=== PATIENT | female | born 1980 ===

== ENCOUNTER 2017-05-02 14:11 | Emergency (ER) | payer BC ==
--- NOTE | 2017-05-02 14:35 | ED ---
Lower Extremity - HPI Summary HPI Summary: 36 YEAR OLD FEMALE PRESENTS WITH LEFT ANKLE PAIN AFTER TWISTING IT WHILE FALLING. - History of Current Complaint Stated Complaint: LEFT ANKLE INJURY Time Seen by Provider: 05/02/17 14:34 Hx Obtained From: Patient Mechanism Of Injury: Fall From A Standing Position Onset of Pain: Immediate Onset/Duration: Days Severity Currently: Moderate Pain Scale Used: 0-10 Numeric - 6 Timing: Constant Character Of Pain: Sharp, Throbbing Associated Signs And Symptoms: Positive: Swelling Aggravating Factor(s): Standing - Allergies/Home Medications Allergies/Adverse Reactions: Allergies Allergy/AdvReac Type Severity Reaction Status Date / Time No Known Allergies Allergy Verified 05/02/17 14:42 Home Medications: Home Medications Control Med 1 tab QAM 05/02/17 [History Confirmed 05/02/17] PMH/Surg Hx/FS Hx/Imm Hx Previously Healthy: Yes Review of Systems Constitutional: Negative Eyes: Negative ENT: Negative Cardiovascular: Negative Respiratory: Negative Gastrointestinal: Negative Genitourinary: Negative Positive: Other - LEFT ANKLE SPRAIN/SWELLING All Other Systems Reviewed And Are Negative: Yes Physical Exam Triage Information Reviewed: Yes Vital Signs Reviewed: Yes Appearance: Positive: Well-Appearing Skin: Positive: Warm Head/Face: Positive: Normal Head/Face Inspection Eyes: Positive: Normal ENT: Positive: Normal ENT inspection Neck: Positive: Supple Respiratory/Lung Sounds: Positive: Clear to Auscultation Cardiovascular: Positive: Normal Abdomen Description: Positive: Nontender Bowel Sounds: Positive: Present Musculoskeletal: Positive: Other - LEFT ANKLE PAIN Neurological: Positive: Normal Psychiatric: Positive: Normal Lower Extremity Course/Dx - Diagnoses Provider Diagnoses: Pain in left ankle and joints of left foot Discharge - Discharge Plan Condition: Stable Disposition: HOME Prescriptions: Meloxicam(NF) [Mobic(NF)] 7.5 mg PO BID #30 tab Patient Education Materials: Ankle Sprain (ED) Referrals: Shaun Manning MD [Medical Doctor] - Non Staff,Doctor [Medical Doctor] -
[2017-05-02 14:49] VITALS: BP 110/65
--- NOTE | 2017-05-02 15:13 | RAD ---
Indication: Medial LEFT ankle pain with medial lower leg proximal radiation. Injury on Monday. Comparison: No relevant prior exams available [place] the [facility] [place]. Technique: AP, mortise, and lateral views LEFT ankle. Report: Normal articular alignment. Negative for fracture. Unremarkable soft tissue contours. IMPRESSION: Negative exam.
== END 2017-05-02 15:36 | disposition home or self-care (01) ==
LOC: UCCORT 14:11
DX: M25.572 Pain in left ankle and joints of left foot (principal)
CPT/HCPCS: 99213; G0463

== ENCOUNTER 2017-06-14 07:30 | Emergency (ER) | payer BC ==
[2017-06-14 07:41] VITALS: BP 122/69
[2017-06-14] MEDS ORDERED: Acetaminophen TAB* 325 MG PO ONE (07:47)
--- NOTE | 2017-06-14 07:54 | UC ---
Throat Pain/Nasal Benedicto HPI - HPI Summary HPI Summary: Fever, myalgias since yesterday. Severe sore throat this morning. No cough. No GI symptoms. - History of Current Complaint Chief Complaint: UCRespiratory Stated Complaint: ACHY FEVER SORE THROAT Time Seen by Provider: 06/14/17 07:46 Hx Obtained From: Patient Hx Last Menstrual Period: 06/07/17 Onset/Duration: Gradual Onset, Lasting Hours Severity: Moderate Cough: None Associated Signs & Symptoms: Positive: Dysphagia, Fever. Negative: Hoarseness, Sinus Discomfort, Nasal Discharge, Vomiting, Rash - Allergies/Home Medications Allergies/Adverse Reactions: Allergies Allergy/AdvReac Type Severity Reaction Status Date / Time No Known Allergies Allergy Verified 06/14/17 07:34 Home Medications: Home Medications Acetaminophen-Caffeine [Excedrin Tension Headache 500-65 mg] 1 tab PO ONCE PRN 06/14/17 [History Confirmed 06/14/17] Ibuprofen [Advil] 600 mg PO Q6H PRN 06/14/17 [History Confirmed 06/14/17] PMH/Surg Hx/FS Hx/Imm Hx Previously Healthy: Yes - Surgical History Surgical History: Yes Surgery Procedure, Year, and Place: GALLBLADDER - Family History Known Family History: Positive: Other - no related ENT family history. - Social History Occupation: Employed Full-time Lives: With Family Alcohol Use: None Substance Use Type: None Smoking Status (MU): Never Smoked Tobacco - Immunization History Most Recent Influenza Vaccination: none 2016 Review of Systems Constitutional: Fever ENT: Sore Throat All Other Systems Reviewed And Are Negative: Yes Physical Exam Triage Information Reviewed: Yes Appearance: Well-Nourished Vital Signs: Initial Vital Signs Temp 99.2 F 06/14/17 07:36 Pulse 102 06/14/17 07:36 Resp 18 06/14/17 07:36 BP 122/69 06/14/17 07:36 Pulse Ox 100 06/14/17 07:36 Vital Signs Reviewed: Yes Eyes: Positive: Conjunctiva Clear ENT: Positive: Pharyngeal erythema, Tonsillar exudate, Uvula midline Neck exam: Normal Neck: Positive: Supple, Nontender, Tenderness @, Enlarged Nodes @ Respiratory Exam: Normal Respiratory: Positive: Chest non-tender, Lungs clear, Normal breath sounds, No respiratory distress, No accessory muscle use. Negative: Respiratory distress Cardiovascular: Positive: RRR, No Murmur, Pulses Normal, Brisk Capillary Refill Abdomen Description: Positive: Soft. Negative: Distended, Guarding Musculoskeletal: Positive: Strength Intact, ROM Intact, No Edema Neurological: Positive: Alert, Muscle Tone Normal. Negative: Fatigued Skin: Negative: rashes Throat Pain/Nasal Course/Dx - Differential Dx/Diagnosis Differential Diagnosis/HQI/PQRI: Epiglottitis, Influenza, Mononucleosis, Otitis Media, Peritonsillar Abscess, Pharyngitis, Sinusitis, Tonsillitis, URI Provider Diagnoses: strep throat. Discharge - Discharge Plan Condition: Good Disposition: HOME Prescriptions: Amoxicillin PO (*) [Amoxicillin 500 MG CAP*] 500 mg PO TID #30 cap Patient Education Materials: Strep Throat (ED) Referrals: Soo Noble [Primary Care Provider] - If Needed
== END 2017-06-14 08:15 | disposition home or self-care (01) ==
LOC: UCCORT 07:30
DX: J02.0 Streptococcal pharyngitis (principal); Z90.49 Acquired absence of other specified parts of digestive tract
CPT/HCPCS: 87502; 87651; 99212; A9270-GY; G0463

== ENCOUNTER → 2017-06-26 18:31 | Emergency (ER) | payer BC ==
[2017-06-26 19:53] VITALS: BP 110/56
--- NOTE | 2017-06-26 20:05 | UC ---
Throat Pain/Nasal Benedicto HPI - HPI Summary HPI Summary: 37 year old female presents with sore throat. - History of Current Complaint Chief Complaint: UCGeneralIllness Stated Complaint: SORE THROAT Time Seen by Provider: 06/26/17 20:04 Hx Obtained From: Patient Hx Last Menstrual Period: 06/07/17 Onset/Duration: Gradual Onset Severity: Moderate Pain Scale Used: 0-10 Numeric - 4 - Allergies/Home Medications Allergies/Adverse Reactions: Allergies Allergy/AdvReac Type Severity Reaction Status Date / Time No Known Allergies Allergy Verified 06/26/17 19:53 Home Medications: Home Medications guaiFENesin ER TAB [Mucinex*] 600 mg PO BID PRN 06/26/17 [History Confirmed ] PMH/Surg Hx/FS Hx/Imm Hx - Surgical History Surgical History: Yes Surgery Procedure, Year, and Place: GALLBLADDER - Family History Known Family History: Positive: Other - no related ENT family history. - Social History Alcohol Use: None Substance Use Type: None Smoking Status (MU): Never Smoked Tobacco - Immunization History Most Recent Influenza Vaccination: none 2016 Review of Systems Constitutional: Negative Skin: Negative Eyes: Negative ENT: Sore Throat Respiratory: Negative Cardiovascular: Negative Gastrointestinal: Negative Genitourinary: Negative Motor: Negative Neurovascular: Negative Musculoskeletal: Negative Neurological: Negative Psychological: Negative All Other Systems Reviewed And Are Negative: Yes Physical Exam Triage Information Reviewed: Yes Vital Signs: Initial Vital Signs Temp 37.2 C 06/26/17 19:47 Pulse 92 06/26/17 19:47 Resp 20 06/26/17 19:47 BP 110/56 06/26/17 19:47 Pulse Ox 100 06/26/17 19:47 Vital Signs Reviewed: Yes Eye Exam: Normal ENT Exam: Normal ENT: Positive: Pharyngeal erythema, Tonsillar swelling Dental Exam: Normal Neck exam: Normal Neck: Positive: 1 Respiratory Exam: Normal Cardiovascular Exam: Normal Abdominal Exam: Normal Musculoskeletal Exam: Normal Neurological Exam: Normal Psychological Exam: Normal Skin Exam: Normal Throat Pain/Nasal Course/Dx - Differential Dx/Diagnosis Provider Diagnoses: pharyngitis Discharge - Discharge Plan Condition: Stable Disposition: HOME Prescriptions: Azithromyxin JOESPH (NF) [Z-Joesph (Zithromax) 250 mg tabs #6] 2 tab PO .TODAY, THEN 1 DAILY #6 tab LoraTADine TAB(NF) [Claritin 10 MG TAB(NF)] 10 mg PO DAILY #30 tab Magic M W2 Tayo/Maal/Nyst/Lido* 5 ml SWISH SPIT QID PRN #120 ml PRN Reason: Sore Throat Patient Education Materials: Pharyngitis (ED), Allergic Rhinitis (ED) Referrals: Soo Noble [Primary Care Provider] -
== END | disposition home or self-care (01) ==
LOC: UCCORT 18:31
DX: J02.9 Acute pharyngitis, unspecified (principal)
CPT/HCPCS: 87651; 99212; G0463

== ENCOUNTER 2017-06-30 18:19 | Emergency (ER) | payer BC ==
[2017-06-30 18:26] VITALS: BP 123/64
--- NOTE | 2017-06-30 19:30 | UC ---
Throat Pain/Nasal Benedicto HPI - HPI Summary HPI Summary: SEVERAL WEEKS OF SINUS CONGESTION, SORE THROAT, COUGH, LARYNGITIS. SEEN ON ` AND PRESCRIBED AZITHROMYCIN, HAS NOT TAKEN ANY OF THE ANTIBIOTICS. SYMPTOMS WORSENING. - History of Current Complaint Chief Complaint: UCRespiratory Stated Complaint: UPPER RESPIRATORY Time Seen by Provider: 06/30/17 18:21 Hx Obtained From: Patient, Family/Sand Conditioner Hx Last Menstrual Period: 06/05/17 Onset/Duration: Gradual Onset, Lasting Weeks, Worse Since - PROGRESSIVE Severity: Moderate Pain Intensity: 3 Pain Scale Used: 0-10 Numeric Cough: Nonproductive Associated Signs & Symptoms: Positive: Hoarseness, Sinus Discomfort, Nasal Discharge, Fever - Epiglottits Risk Factors Epiglottis Risk Factors: Negative - Allergies/Home Medications Allergies/Adverse Reactions: Allergies Allergy/AdvReac Type Severity Reaction Status Date / Time No Known Allergies Allergy Verified 06/30/17 18:25 PMH/Surg Hx/FS Hx/Imm Hx Previously Healthy: Yes - Surgical History Surgical History: Yes Surgery Procedure, Year, and Place: GALLBLADDER - Family History Known Family History: Positive: Other - no related ENT family history. Negative: Respiratory Disease - Social History Occupation: Employed Full-time Lives: With Family Alcohol Use: None Substance Use Type: None Smoking Status (MU): Never Smoked Tobacco - Immunization History Most Recent Influenza Vaccination: none 2016 Review of Systems Constitutional: Fever Skin: Negative Eyes: Negative ENT: Sore Throat, Nasal Discharge, Sinus Congestion, Sinus Pain/Tenderness Respiratory: Cough Cardiovascular: Negative Gastrointestinal: Negative Genitourinary: Negative Motor: Negative Neurovascular: Negative Musculoskeletal: Negative Neurological: Negative Psychological: Negative Is Patient Immunocompromised?: No All Other Systems Reviewed And Are Negative: Yes Physical Exam Triage Information Reviewed: Yes Appearance: No Pain Distress, Well-Nourished, Ill-Appearing Vital Signs: Initial Vital Signs Temp 99.7 F 06/30/17 18:20 Pulse 73 06/30/17 18:20 Resp 14 06/30/17 18:20 BP 123/64 06/30/17 18:20 Pulse Ox 100 06/30/17 18:20 Vital Signs Reviewed: Yes Eye Exam: Normal ENT: Positive: Pharyngeal erythema, Nasal congestion, Nasal drainage, TM bulging , TM dull, Tonsillar swelling Dental Exam: Normal Neck exam: Normal Neck: Positive: Supple, Nontender, No Lymphadenopathy Respiratory Exam: Normal Respiratory: Positive: Chest non-tender, Lungs clear, Normal breath sounds, No respiratory distress, No accessory muscle use Cardiovascular Exam: Normal Cardiovascular: Positive: RRR, No Murmur, Pulses Normal Abdominal Exam: Normal Musculoskeletal Exam: Normal Musculoskeletal: Positive: Strength Intact, ROM Intact Neurological Exam: Normal Psychological Exam: Normal Skin Exam: Normal Throat Pain/Nasal Course/Dx - Differential Dx/Diagnosis Differential Diagnosis/HQI/PQRI: Mononucleosis, Pharyngitis, Sinusitis, Tonsillitis, URI Provider Diagnoses: SINUSITIS; BRONCHITIS Discharge - Discharge Plan Condition: Stable Disposition: HOME Prescriptions: Amoxicillin/Clavulanate TAB* [Augmentin TAB 875*] 875 mg PO BID #20 tab Patient Education Materials: Sinusitis (ED), Tonsillitis (ED) Referrals: [facility] [Outside] No Primary Care Phys,NOPCP [Primary Care Provider] -
== END 2017-06-30 19:05 | disposition home or self-care (01) ==
LOC: UCCORT 18:19
DX: J32.9 Chronic sinusitis, unspecified (principal); J40 Bronchitis, not specified as acute or chronic; Z90.49 Acquired absence of other specified parts of digestive tract
CPT/HCPCS: 99212; G0463